=== PATIENT | male | born 1980 | race Caucasian/White ===

== ENCOUNTER 2020-03-29 03:27 | Emergency (ER) | payer SELFPAY ==
[~2020-03-29] VITALS: Ht 160 cm; Wt 77.0 kg
[2020-03-29 03:41] VITALS: BP 150/100
[2020-03-29] MEDS ORDERED: LIDOCAINE HCL/PF 1% 10 MG/ML 5ML VIAL IJ ONE (03:45)
[2020-03-29] MEDS ORDERED: TETANUS, DIPHTHERIA, PERTUSSIS VAC/PF 0.5ML (>7YR OLD) IM ONE (03:45)
[2020-03-29] MEDS ORDERED: ACETAMINOPHEN 325MG TABLET PO ONE (03:45)
== END 2020-03-29 04:48 | disposition home or self-care (01) ==
LOC: ER 03:50
DX: S01.01XA Laceration without foreign body of scalp, initial encounter (principal); W18.39XA Other fall on same level, initial encounter; Y93.89 Activity, other specified; Y92.89 Other specified places as the place of occurrence of the external cause; Y99.8 Other external cause status
CPT/HCPCS: 12001; 90471; 90715; 99284